=== PATIENT | female | born 1990 | race Caucasian/White ===

== ENCOUNTER → 2023-01-09 14:26 | Outpatient (BNVA) | payer MEDICAID, SELFPAY | PROVIDERS: Visit Provider Nurse Practitioner Family | DX: L81.4 Other melanin hyperpigmentation (principal); L28.0 Lichen simplex chronicus; D22.5 Melanocytic nevi of trunk; L23.9 Allergic contact dermatitis, unspecified cause | CPT/HCPCS: 99204 ==